=== PATIENT | male | born 1995 | race African-American/Black ===

== ENCOUNTER 2021-10-15 01:17 | Observation (INO) | payer BC, SELFPAY ==
[2021-10-15] MEDS ORDERED: Boostrix 0.5 ML (Tdap) VIAL ONE (01:23)
[2021-10-15] MEDS ORDERED: CEFAZOLIN 1 GM VIAL ONE (01:28)
[2021-10-15] MEDS ORDERED: CEFAZOLIN 2 GM in Sodium Chloride 0.9% 100 ML IVPB SCH (01:30)
[2021-10-15 01:36] LABS: #Basophils 0.1 thou/uL (0.0-0.2); #Eosinphils 0.1 thou/uL (0.0-0.7); #Lymphocytes 4.2 thou/uL (1.20-3.40); #Monocytes 0.7 thou/uL (0.11-0.59); #Neutrophils 4.1 thou/uL (1.40-6.50); %Basophils 0.7 % (0.0-1.0); %Eosinophils 1.5 % (0.0-10.0); %Monocytes 7.2 % (0.0-10.0); %Neutrophils 44.5 % (42.0-75.0); Hemoglobin 15.4 g/dL (14.0-18.0); Mean Corpuscular HGB CONC 34.6 g/dL (32.0-36.0); Mean Corpuscular Hemoglobin 32.1 pg (27.0-31.0); Mean Corpuscular Volume 92.8 fL (78.0-98.0); Mean Platelet Volume 8.3 fL (7.4-10.4); Platelet Count 201 thou/uL (130-400); White Blood Cell (WBC) Count 9.2 thou/uL (4.8-10.8)
[2021-10-15 01:54] LABS: INR-International Normal Ratio 0.9; PTT 24.5 sec (22.9-36.1); Prothrombin Time 12.7 sec (12.0-14.7)
[2021-10-15 01:59] LABS: ALT (SGPT) 29 U/L (8-55); AST (SGOT) 27 U/L (5-34); Albumin 4.3 g/dL (3.5-5.0); Alkaline Phosphatase 68 U/L (40-110); Anion Gap 19 mmol/L (10-20); BUN (Urea Nitrogen) 16 mg/dL (8.9-20.6); Bilirubin, Total 0.4 mg/dL (0.2-1.2); Calc. Creatinine Clearance 0 mL/min (70-130); Calcium 9.5 mg/dL (7.8-10.44); Carbon Dioxide 18 mmol/L (22-29); Chloride 103 mmol/L (98-107); Estimated GFR 99; Globulin 3.4 g/dL (2.4-3.5); Glucose 96 mg/dL (70-105); Potassium 3.3 mmol/L (3.5-5.1); Protein, Total 7.7 g/dL (6.0-8.3); Sodium 137 mmol/L (136-145)
[2021-10-15] MEDS ORDERED: Ondansetron PF 4 MG/2 ML Vial IVP PRN (02:18)
[2021-10-15] MEDS ORDERED: Dextrose 5% in Water 1,000 ML IV PRN (02:18)
[2021-10-15] MEDS ORDERED: Dextrose 50% Abboject 50 ML SYRINGE SLOW IVP PRN (02:18)
[2021-10-15] MEDS ORDERED: hydrALAZINE 20 MG/ML VIAL SLOW IVP PRN (02:18)
[2021-10-15] MEDS ORDERED: Acetaminophen/Codeine 30-300mg Tablet PO PRN (02:21)
[2021-10-15] MEDS ORDERED: Acetaminophen 325 MG TAB PO PRN (02:24)
[2021-10-15] MEDS ORDERED: Potassium Chloride 20 MEQ in Premix Bag 1 BAG IVPB SCH (02:30)
[2021-10-15] MEDS ORDERED: Acetaminophen 325 MG TAB ONE (04:51)
[2021-10-15] MEDS ORDERED: Potassium Chloride 20 MEQ/100 ML PREMIX BAG ONE ×2 (04:51→09:04)
[2021-10-15 06:37] VITALS: TEMP 99
[2021-10-15] MEDS ORDERED: Famotidine 20 MG TAB PO SCH (09:00)
[2021-10-15] MEDS ORDERED: Polyethylene Glycol 3350 17 GM Packet PO SCH (09:00)
[2021-10-15] MEDS ORDERED: Senokot S 8.6-50 MG TAB PO SCH (09:00)
[2021-10-15] MEDS ORDERED: Famotidine 20 MG TAB ONE (09:04)
[2021-10-15] MEDS ORDERED: Potassium Chloride 20 MEQ TAB PO SCH (09:15)
[2021-10-15] MEDS ORDERED: Potassium Chloride 20 MEQ TAB ONE (09:59)
[2021-10-15 11:36] VITALS: BP 149/98
[2021-10-15] MEDS ORDERED: Iopamidol-370 76% 500 ML 1 ML ONE (11:37)
[2021-10-15] MEDS ORDERED: Bacitracin 1 PK TOP SCH (15:00)
== END 2021-10-15 13:54 | disposition home or self-care (01) ==
LOC: ERS 01:17 → EEVIPCON 02:21 → ERHOLD 02:21
PROVIDERS: ADMIT Student in an Organized Health Care Education/Training Program; ATTEND Surgery
DX: S01.83XA Puncture wound without foreign body of other part of head, initial encounter (principal); S06.5X9A Traumatic subdural hemorrhage with loss of consciousness of unspecified duration, initial encounter; E87.6 Hypokalemia; Z20.822 Contact with and (suspected) exposure to COVID-19; X95.9XXA Assault by unspecified firearm discharge, initial encounter; Z18.89 Other specified retained foreign body fragments
CPT/HCPCS: 36415; 70450; 70498; 80053; 83605; 85025; 85610; 85730; 86850; 86900; 86901; 90715; G0378; G0390; J0690; J3480; J3490; Q9967; U0003; U0005